=== PATIENT | female | born 1965 | race Caucasian/White ===

== ENCOUNTER 2021-01-14 10:52 | Outpatient (REF) | payer BC, SELFPAY ==
--- NOTE | ~2021-01-14 | MM_ITS ---
EXAMINATION: MM SCREENING DIGITAL BREAST TOMOSYNTHESIS, BILATERAL CLINICAL INFORMATION: Screening. Asymptomatic. Prior remote bilateral reduction mammoplasty, 1991. The lifetime risk of breast cancer based on the Tyrer-Cuzick Model is 10%. COMPARISON: Mammography: 01/21/2018, 07/26/2016 TECHNIQUE: Digital breast tomosynthesis is performed in both the craniocaudal and mediolateral oblique views along with computer-aided detection (CAD). Synthesized 2D images are generated from the tomosynthesis. FINDINGS: There are scattered areas of fibroglandular density (ACR BI-RADS breast composition Category b). There are no significant masses, abnormal calcifications, or other abnormalities. There is minor stable scarring and benign round and coarse calcifications consistent with the prior reduction mammoplasty. The axilla are unremarkable. No significant changes from prior studies. MM/MM tomosynthesis screening BI IMPRESSION: No mammographic evidence of malignancy. ASSESSMENT: BI-RADS 2: Benign RECOMMENDATION: Routine annual mammography screening. This patient's information was entered into a reminder system with a target due date for their next mammogram.
== END 2021-01-14 10:53 | disposition home or self-care (01) ==
LOC: HO.MAMMO 10:52
PROVIDERS: Visit Provider Nurse Practitioner Adult Health
DX: Z12.31 Encounter for screening mammogram for malignant neoplasm of breast (principal)
CPT/HCPCS: 77063; 77067

== ENCOUNTER → 2022-04-23 14:12 | Outpatient (REF) | payer BC, SELFPAY ==
--- NOTE | 2022-04-23 14:17 | CA_ITS ---
Transthoracic Echocardiogram Patient (Last, First, Middle): Alice Lockhart M Gender: Female Date of : 1965 Age: 57 Procedure Date: 04/23/2022 Procedure Type: Transthoracic Echocardiogram Location: OP Height: 160.02 cm Weight: 65.77 kg BSA: 1.69 m2 Heart Rate: bpm BP: 110 / 70 mmHg Insole Channeler: TO Referring MD: Tameka Jim MD Home Visits Nurse: Helio Villalobos MD Symptoms: R00.2 - Palpitations Study Quality: Good ECG Rhythm: Sinus bradycardia Conclusions: - Essentially normal study Findings Left Ventricle Normal left ventricular size, thickness, and systolic function. The visually estimated ejection fraction is between 65-70%. Spectral Doppler is indicative of a normal filling pattern. Right Ventricle Normal right ventricular cavity size and systolic function. Atria Both atria are normal in size. There is no evidence of interatrial shunt. Aortic Valve Normal aortic valve structure and function. There is no aortic valve stenosis. There is no aortic valve regurgitation. Mitral Valve Normal mitral valve structure and function. There is trace mitral valve regurgitation. There is no mitral valve stenosis. Pulmonic Valve The pulmonic valve is likely normal. There is trace pulmonic valve regurgitation. Tricuspid Valve Normal tricuspid valve structure. Tricuspid regurgitation envelope is inadequate for calculation of right ventricular systolic pressure. Normal right atrial pressure. Great Vessels All visible segments of the aorta are normal in size. The pulmonary artery was not well visualized. Venous The inferior vena cava is normal in size and collapses greater than 50% with inspiration. Pericardium/Pleural There is no evidence of pericardial effusion. Prior Study Comparison No prior study available for comparison. Measurements 2D Linear Measurements IVSd: 0.99 0.6-0.9/0.6-1.0 cm LVIDd: 4.57 3.9-5.3/4.2-5.9 cm LVIDd Index: 2.70 2.4-3.2/2.2-3.1 cm/m2 LVIDs: 3.03 2.0-3.6 cm LVPWd: 0.85 0.7-1.1 cm LA Diam: 3.30 2.7-3.8/3.0-4.0 cm LAIDs Index: 1.95 1.5-2.3 cm/m2 LV Mass: 173.88 67-162/88-224 g LV Mass Index: 102.89 43-95/49-115 g/m2 LVOT Diam: 2.00 3.0+(-)1.3 cm 2D Systolic Function EF 4C: 67.10 >55% EF 2C: 66.40 >55% EF BiP: 67.60 >55% Mitral Valve MV Pk E: 0.83 MV PK A: 0.52 MV Decel Time: 219.00 E/A: 1.60 E'Lateral: 13.40 E'Medial: 8.81 E/E' Med: 9.40 E/E' Lat: 6.20 PHT: 64.00 MVA PHT: 3.44 Decel Manatee: 3.78 Aortic Valve AoV Pk Juvencio: 1.41 AoV Mn Juvencio: 0.93 AoV VTI: 0.35 AoV Pk Grad: 8.00 Aov Mn Grad: 4.00 MYNOR Cont.VTI: 2.43 LVOT LVOT Pk Juvencio: 1.20 LVOT Mn Juvencio: 0.64 LVOT VTI: 0.27 LVOT Pk Grad: 6.00 LVOT Mn Grad: 2.00 LVOT Diam: 2.00 LVOT Area: 3.14 Diastolic Function MV Pk E: 0.83 MV Pk A: 0.52 E/A: 1.60 E'Medial: 8.81 E/E' Med: 9.40 E' Laterial: 13.40 E/E' Lat: 6.20 Right Ventricle TAPSE (mm): 28.90 TVS' Juvencio: 12.40 Tricuspid Valve RA Press: 3.00 Great Vessels Aorta Sinus of Valsalva: 3.05 2.0-3.5 cm Ao Asc: 3.60 2.1-3.4 cm Ao Arch: 2.50 Updated in Other Vendor System with Status of Final Helio Villalobos MD electronically signed on 04/24/2022 5:22:53 PM with status of Final
== END ==
LOC: HO.CARD 14:12
PROVIDERS: Visit Provider Internal Medicine
DX: R00.1 Bradycardia, unspecified (principal); R00.2 Palpitations; R94.31 Abnormal electrocardiogram [ECG] [EKG]; E78.9 Disorder of lipoprotein metabolism, unspecified; Z87.891 Personal history of nicotine dependence
CPT/HCPCS: 93306

== ENCOUNTER → 2022-04-25 10:57 | Outpatient (REF) | payer BC, SELFPAY ==
--- NOTE | 2022-04-25 11:09 | HM_ITS ---
Conclusion: 1. Patient was monitored for total period of 2 days 2. Baseline was normal sinus rhythm with average heart of 52 beats per minute. 3. Frequent sinus bradycardia with heart rate below 60 beats per minute 48% of total time with lower start of 33 beats per minute during sleep 4. No significant pauses noted 5. Four short episodes of supra tachycardia, longest lasting 7 beats 6. Total of 18 167 PVCs accounting for 1.23% of total beats account for frequent PVCs 7. No patient reported events MTDD
== END ==
LOC: HO.CARD 10:57
PROVIDERS: PCP Internal Medicine; Visit Provider Internal Medicine Cardiovascular Disease
DX: R00.1 Bradycardia, unspecified (principal); R00.2 Palpitations; R94.31 Abnormal electrocardiogram [ECG] [EKG]
CPT/HCPCS: 93242

== ENCOUNTER 2022-04-27 22:51 | Emergency (ER) | payer BC, SELFPAY ==
--- NOTE | 2022-04-27 22:54 | ECG_ITS ---
Test Reason : chest tightness/heart rate flux Blood Pressure : / mmHG Vent. Rate : 049 BPM Atrial Rate : 049 BPM P-R Int : 148 ms QRS Dur : 076 ms QT Int : 420 ms P-R-T Axes : 058 078 080 degrees QTc Int : 379 ms Sinus bradycardia Low voltage QRS Septal infarct , age undetermined Abnormal ECG No previous ECGs available Referred By: Generic ED Physician Electronically Signed By:DARREL WELCH MD
[2022-04-27 22:55] VITALS: BP 133/69; PULSE 52; RESP 18; TEMP 37; O2SAT 99; BMI 25.1
--- NOTE | 2022-04-27 23:25 | ED_ITS ---
HPI - Chest Pain General Chief Complaint: Chest Pain Stated Complaint: cardiac arrest? Time Seen by Provider: 04/27/22 23:11 Source: patient Mode of arrival: ambulatory Limitations: no limitations History of Present Illness HPI narrative: Patient comes emergency room complaining episodes of tachycardia, heart rate up to 120 according to her Apple watch. Patient states that she was shaving her legs at this time. The tachycardia self resolved. Patient states that sometimes she feels palpitations, patient has been on a Holter monitor, today she ended her Holter monitor times and had to return the Holter. Patient reports the sensation of having ?something in the neck?. Patient states that she feels very anxious because approximately 1 week ago, she had an EKG done at her primary care physicians and she was told that it is possible that at some point she had signed heart attack. At this time, patient had no chest pain, no shortness of breath, complaining of chronic fatigue. Patient had an echocardi ogram done 4 days ago, it was normal. Related Data Allergies Allergy/AdvReac Type Severity Reaction Status Date / Time No Known Allergies Allergy Unverified 04/19/22 08:24 [No Known Allergies*] hydrocodone AdvReac Unknown nausea and Uncoded 04/19/22 08:24 vomiting Review of Systems Review of Systems: Constitutional : No Weight loss, No Fever, No Chills, No Night Sweats, No Fatigue, No Malaise ENT/Mouth : No Hearing loss, No Ear Pain, No Nasal Congestion, No Sinus Pain, No Hoarseness, No sore throat, No Rhinorrhea, No Swallowing Difficulty Eyes: No Eye Pain, No Swelling, No Redness, No Foreign Body, No Discharge, No Vision Changes Cardiovascular : No Chest Pain, No SOB, No Dyspnea on Exertion, No Orthopnea, complaining of palpitations, bradycardia and tachycardia Respiratory : No Cough, No Sputum, No Wheezing, No Smoke Exposure, No Dyspnea Gastrointestinal : No Nausea, No Vomiting, No Diarrhea, No Constipation, No abdominal Pain, No Hematochezia, No Melena Genitourinary : no irregular bleeding, No Dysuria, No Urinary Frequency, No Hematuria, No Urinary Incontinence, No Urgency, No Flank Pain, No Urinary Flow Changes, No Hesitancy Musculoskeletal : No joint pain, No Myalgias, No Joint Swelling Skin : No Skin Lesions, No rash Neuro : No Weakness, No Numbness, No Paresthesias, No Loss of Consciousness, No Dizziness, No Headache Psych : Complaining of feeling anxious, No Depression, No SI/HI/AH/VH, No Social Issues, Heme/Lymph: No Bruising, No Bleeding,No Lymphadenopathy Endocrine : No Polyuria, No Polydipsia, No Temperature Intolerance [facility] Social History Social History Advance Directives: No Advance Directives Information Provided: Yes Physical Exam Vital Signs: Vital Signs: Last Vital Signs Temp 98.6 F 04/27/22 22:55 Pulse 52 04/27/22 22:55 Resp 18 04/27/22 22:55 BP 133/69 04/27/22 22:55 Pulse Ox 99 04/27/22 22:55 O2 Del Method 04/27/22 22:55 BMI result Body Mass Index 25.1 Const: Other: Appearance: Alert. Oriented X3. No acute distress. Eyes: Pupils equal, round and reactive to light. ENT: Pharynx normal. Neck: Normal inspection. Neck supple. No lymph nodes noted. No crepitus CVS: Normal heart rate and rhythm. Pulses normal. Normal S1 and S2 Respiratory: No respiratory distress. Breath sounds normal. No Wheezing. No rales Abdomen: Soft and nontender. No rigidity. No distention. Skin: Skin warm and dry. Normal skin color. Normal skin turgor. Extremities: No lower extremity edema. No Lacerations. No Rash Neuro: Oriented X 3. No motor deficit. No sensory deficit. Moving all extremities. No slurred speech. CN 2 through 12 grossly intact Psych: calm, cooperative, normal affect, slightly anxious Course Course Course Narrative: Patient's EKG shows bradycardia. Patient's blood pressure within normal limits. At this time, no episodes of tachycardia have been reported. All of patient's labs are pending. Patient's D-dimer, troponin negative. Vitals are stable, patient does have bradycardia but her blood pressure is stable in the 130s. TSH within normal limits. I discussed the echocardiogram done on 04/23/2022, conclusions: Essentially normal study At this time, we will not add/change any medication. Patient will follow-up with Dr. Wilfredo MCNALLY - Chest Pain Lab Data Result diagrams: 04/28/22 00:24 04/28/22 00:24 Labs: Lab Results 04/28/22 04/28/22 04/28/22 Range/Units 00:24 00:24 00:24 WBC 7.2 (4.8-10.8) X10*3/uL RBC 4.47 (4.20-5.50) X10*6/uL Hgb 13.6 (12.0-16.0) g/dl Hct 40.9 (37.0-47.0) % MCV 91.5 (80.0-98.0) fL MCH 30.4 (27.0-33.0) pg MCHC 33.3 (31.0-35.0) g/dl RDW 12.8 (11.0-16.0) % Plt Count 192 (160-400) X10*3/uL MPV 10.2 (9.4-12.3) fL Immature Gran % (Auto) 0.1 (0.0-0.4) % Neut % (Auto) 48.8 (45-73) % Lymph % (Auto) 39.6 (20-40) % Bent % (Auto) 7.9 (2-11) % Eos % (Auto) 2.9 (0-4) % Baso % (Auto) 0.7 (0-2) % Lymph # (Auto) 2.9 (1.2-4.9) X10*3/uL Bent # (Auto) 0.6 (0.1-1.2) X10*3/uL Eos # (Auto) 0.2 (0.0-0.4) X10*3/uL Baso # (Auto) 0.1 (0.0-0.2) X10*3/uL Abs Immat Gran (auto) 0.01 (0.00-0.03) X10*3/uL Absolute Neuts (auto) 3.5 (2.0-8.3) x10*3/uL Absolute Nucleated RBC 0.000 (0.0-0.012) X10*3/uL Nucleated RBC % (auto) 0.0 (0.0-0.2) /100WBC D-Dimer High Sensitivty NG/ML Sodium 136 (135-145) mmol/L Potassium 3.8 (3.3-5.1) mmol/L Chloride 101 (96-108) mmol/L Carbon Dioxide 27 (22-29) mmol/L Anion Gap 12 (12-20) BUN 15 (9-16) mg/dL Creatinine 0.81 (0.5-1.4) mg/dL Estim Creat Clear Calc 70.0 Estimated GFR > 60 Random Glucose 110 (60-115) mg/dL Calcium 9.1 (8.4-10.2) mg/dL Total Bilirubin 1.0 (0.0-1.0) mg/dL AST 18 (5-31) U/L ALT 15 (0-31) U/L Alkaline Phosphatase 71 (39-117) U/L Troponin I High Sens 4.2 (<3.5-17.0) ng/L B-Natriuretic Peptide < 10 (<100) pg/mL Total Protein 7.5 (6.5-8.0) g/dL Albumin 4.4 (3.5-5.0) g/dL TSH (0.32-4.0) uIU/mL COVID-19 ([facility]) (Negative) COVID-19 Clin Com 04/28/22 04/28/22 04/28/22 Range/Units 00:24 00:25 00:25 WBC (4.8-10.8) X10*3/uL RBC (4.20-5.50) X10*6/uL Hgb (12.0-16.0) g/dl Hct (37.0-47.0) % MCV (80.0-98.0) fL MCH (27.0-33.0) pg MCHC (31.0-35.0) g/dl RDW (11.0-16.0) % Plt Count (160-400) X10*3/uL MPV (9.4-12.3) fL Immature Gran % (Auto) (0.0-0.4) % Neut % (Auto) (45-73) % Lymph % (Auto) (20-40) % Bent % (Auto) (2-11) % Eos % (Auto) (0-4) % Baso % (Auto) (0-2) % Lymph # (Auto) (1.2-4.9) X10*3/uL Bent # (Auto) (0.1-1.2) X10*3/uL Eos # (Auto) (0.0-0.4) X10*3/uL Baso # (Auto) (0.0-0.2) X10*3/uL Abs Immat Gran (auto) (0.00-0.03) X10*3/uL Absolute Neuts (auto) (2.0-8.3) x10*3/uL Absolute Nucleated RBC (0.0-0.012) X10*3/uL Nucleated RBC % (auto) (0.0-0.2) /100WBC D-Dimer High Sensitivty < 150 NG/ML Sodium (135-145) mmol/L Potassium (3.3-5.1) mmol/L Chloride (96-108) mmol/L Carbon Dioxide (22-29) mmol/L Anion Gap (12-20) BUN (9-16) mg/dL Creatinine (0.5-1.4) mg/dL Estim Creat Clear Calc Estimated GFR Random Glucose (60-115) mg/dL Calcium (8.4-10.2) mg/dL Total Bilirubin (0.0-1.0) mg/dL AST (5-31) U/L ALT (0-31) U/L Alkaline Phosphatase (39-117) U/L Troponin I High Sens (<3.5-17.0) ng/L B-Natriuretic Peptide (<100) pg/mL Total Protein (6.5-8.0) g/dL Albumin (3.5-5.0) g/dL TSH 1.80 (0.32-4.0) uIU/mL COVID-19 ([facility]) Negative (Negative) COVID-19 Clin Com See Note Discharge Plan Discharge Clinical Impression: Palpitation Patient Disposition: Home, Self-Care Instructions: Heart Palpitations (ED) Additional Instructions: Please follow-up with your primary care physician tomorrow. If you have any worsening or new symptoms, please return to the emergency room or call 911 Referrals: Helio Villalobos MD [Physician] - 3 days
[2022-04-28 00:36] LABS: Basophils Absolute Auto 0.1 X10*3/uL (0.0-0.2); Basophils Percent Auto 0.7 % (0-2); Eosinophils Absolute Auto 0.2 X10*3/uL (0.0-0.4); Eosinophils Percent Auto 2.9 % (0-4); Hematocrit 40.9 % (37.0-47.0); Hemoglobin 13.6 g/dl (12.0-16.0); Imm Gran Abs Auto 0.01 X10*3/uL (0.00-0.03); Imm Gran Pct Auto 0.1 % (0.0-0.4); Lymphocytes Absolute Auto 2.9 X10*3/uL (1.2-4.9); Lymphocytes Percent Auto 39.6 % (20-40); MANUAL DIFF FLAG NO; Mean Corpuscular HGB Conc 33.3 g/dl (31.0-35.0); Mean Corpuscular Hemoglobin 30.4 pg (27.0-33.0); Mean Corpuscular Volume 91.5 fL (80.0-98.0); Mean Platelet Volume 10.2 fL (9.4-12.3); Monocytes Absolute Auto 0.6 X10*3/uL (0.1-1.2); Monocytes Percent Auto 7.9 % (2-11); Neutrophils Absolute Auto 3.5 x10*3/uL (2.0-8.3); Neutrophils Percent Auto 48.8 % (45-73); Platelet Count 192 X10*3/uL (160-400); Red Blood Count 4.47 X10*6/uL (4.20-5.50); Red Cell Distribution Width 12.8 % (11.0-16.0); White Blood Count 7.2 X10*3/uL (4.8-10.8)
[2022-04-28 00:55] LABS: Alanine Aminotransferase 15 U/L (0-31); Albumin Level 4.4 g/dL (3.5-5.0); Alkaline Phosphatase 71 U/L (39-117); Anion Gap 12 (12-20); Aspartate Amino Transferase 18 U/L (5-31); Blood Urea Nitrogen 15 mg/dL (9-16); Calcium 9.1 mg/dL (8.4-10.2); Carbon Dioxide 27 mmol/L (22-29); Chloride 101 mmol/L (96-108); Estimated Glomerular Filt Rate > 60; Glucose Random 110 mg/dL (60-115); Potassium 3.8 mmol/L (3.3-5.1); Sodium 136 mmol/L (135-145); Total Protein 7.5 g/dL (6.5-8.0)
[2022-04-28 00:56] LABS: D Dimer High Sensitivity < 150 NG/ML
[2022-04-28 00:58] LABS: COVID-19 Test Negative (Negative)
[2022-04-28 01:01] LABS: B Type Natriuretic Peptide < 10 pg/mL (<100); Troponin-I High Sensitivity 4.2 ng/L (<3.5-17.0)
== END 2022-04-28 01:49 | disposition home or self-care (01) ==
PROVIDERS: Emergency Provider Emergency Medicine
DX: R00.2 Palpitations (principal); R00.1 Bradycardia, unspecified; R53.83 Other fatigue; Z20.822 Contact with and (suspected) exposure to COVID-19; E78.9 Disorder of lipoprotein metabolism, unspecified; F41.9 Anxiety disorder, unspecified; Z87.891 Personal history of nicotine dependence
CPT/HCPCS: 36415; 80053; 83880; 84443; 84484; 85025; 85379; 87635; 93005; 99283; 99284

== ENCOUNTER → 2022-05-04 10:33 | Outpatient (REF) | payer BC, SELFPAY ==
--- NOTE | 2022-05-04 10:36 | CA_ITS ---
Acquisition Time: 2022-05-04 10:51:35 Total Exercise Time: 00:10:47 Test Indications: Abnormal ECG Medications: NONE Protocol: KELVIN Max HR: 151 BPM 92% of Pred: 164 BPM Max BP: 156/056 mmHG Max Work Load: 13.0 METS Exercise stress test with exercise 10 min 47 sec of Kelvin protocol, achieving 91% MPHR, without anginal symptoms, with isolated PVC, with normotensive and normal chronotropic response to exercise, without EKG changes meeting criteria for ischemia, with J point depression and upsloping ST segments. In recovery there is borderline ST depression with scooping ST segments inferiorly and V3-V6. At around 6 min recovery she reported a vague pressure to right of her sternum. She tells me she gets that feeling randomly at home. Her symptom resolved after a few minutes. Test reviewed with Dr Mckeon Will order a stress echocardiogram for further evaluation. Referred By: Helio Villalobos Overread By: JOE CARDOSO
--- NOTE | 2022-05-04 10:36 | HM_ITS ---
TEST PERFORMED: Cardiac event monitoring. REQUESTING PHYSICIAN: Dr. Villalobos. INDICATION: Palpitations. ENROLLMENT PERIOD: 05/04/2022 to 06/03/2022; 30 days. INDICATION: Palpitations. FINDINGS: In the above monitoring period, underlying rhythm is sinus. Rates ranged from 34 to 111 beats per minute. Isolated PVCs noted. Rare PACs noted. Several symptoms documented including chest pain, dizziness, shortness of breath, racing, fluttering at different times. A lot of these seem to correlate with sinus rhythm. On some occasions, also noted with PVCs and PACs, but the ectopy burden is very low. CONCLUSION: Study shows underlying sinus rhythm with sinus bradycardia, rare PACs/PVCs. The patient's symptoms generally correlate with sinus rhythm, on occasion with PACs/PVCs, but ectopy burden is minimal. MD JOSE Sigala/ANGELIKA / [id number] MTDNel
== END ==
LOC: HO.CARD 10:33
PROVIDERS: PCP Internal Medicine; Visit Provider Internal Medicine Cardiovascular Disease
DX: R00.2 Palpitations (principal); R00.1 Bradycardia, unspecified
CPT/HCPCS: 93017; 93270

== ENCOUNTER 2022-05-10 11:48 | Outpatient (REF) | payer BC, SELFPAY ==
[2022-05-10 12:49] LABS: Cholesterol 241 mg/dL; HDL Cholesterol 84 mg/dL; LDL Cholesterol Calculated 147 mg/dl; Triglycerides 52 mg/dL
[2022-05-12 14:27] LABS: CRP High Sensitivity <0.3 mg/L
== END 2022-05-10 11:49 | disposition home or self-care (01) ==
LOC: HO.LAB 11:48
PROVIDERS: Visit Provider Internal Medicine Cardiovascular Disease
DX: E78.5 Hyperlipidemia, unspecified (principal); E78.9 Disorder of lipoprotein metabolism, unspecified; I25.10 Atherosclerotic heart disease of native coronary artery without angina pectoris
CPT/HCPCS: 36415; 80061; 86141

== ENCOUNTER 2022-05-14 10:28 | Outpatient (REF) | payer BC, SELFPAY ==
--- NOTE | ~2022-05-14 | XR_ITS ---
EXAMINATION: XR CHEST CLINICAL INFORMATION: Previous artifacts, follow-up. COMPARISON: None TECHNIQUE: 2 views of the chest were obtained. FINDINGS: No significant abnormality is noted involving the heart, lungs, mediastinum, bony thorax or soft tissues. XR/XR chest 2V IMPRESSION: No acute cardiopulmonary process.
== END 2022-05-14 10:29 | disposition home or self-care (01) ==
LOC: HO.HMGCX 10:28
PROVIDERS: Visit Provider Internal Medicine
DX: R59.1 Generalized enlarged lymph nodes (principal)
CPT/HCPCS: 71046

== ENCOUNTER → 2022-05-22 11:06 | Outpatient (REF) | payer BC, SELFPAY ==
--- NOTE | 2022-05-22 11:10 | CA_ITS ---
Acquisition Time: 2022-05-22 11:26:34 Total Exercise Time: 00:10:43 Test Indications: CHEST PAIN Medications: SEE H Protocol: KELVIN Max HR: 137 BPM 83% of Pred: 164 BPM Max BP: 136/070 mmHG Max Work Load: 12.9 METS Exercise stress test with exercise 10 min 43 sec of Kelvin protocol, achieving 83% MPHR, with exercise to her max limit, with mild sob, no chest discomfort, with isolated PVCs noted in early recover, with normotensive and blunted heart rate response to exercise ( during recent ETT with same exercise HR reached 91% MPHR), with artifact in stage 4/ peak, with borderline ST depression inferiorly also with T wave abnormalities/ flattening to slight inversion present and similar to baseline. In recovery she reported a mild discomfort in her mid chest that lasted about 2 minutes. Her heart rate corrected quickly in recovery: 1 min post exercise HR 55% MPHR. Echo images obtained by tech at rest and immediately post peak exercise. Definity contrast used. Test reviewed with Dr Vilchis Referred By: Miranda Kumar Overread By: MIRANDA KUMAR
== END ==
LOC: HO.CARD 11:06
PROVIDERS: Visit Provider Nurse Practitioner Family
DX: R07.9 Chest pain, unspecified (principal); R00.2 Palpitations; R94.39 Abnormal result of other cardiovascular function study; R94.31 Abnormal electrocardiogram [ECG] [EKG]
CPT/HCPCS: 93350; Q9957

== ENCOUNTER → 2022-05-24 10:52 | Outpatient (REF) | payer BC, SELFPAY | LOC: HO.SL 10:52 | PROVIDERS: Visit Provider Internal Medicine Cardiovascular Disease | DX: R40.0 Somnolence (principal); R06.83 Snoring; R00.1 Bradycardia, unspecified | CPT/HCPCS: 95806 ==

== ENCOUNTER 2022-08-10 11:09 | Outpatient (REF) | payer BC, SELFPAY ==
--- NOTE | ~2022-08-10 | CT_ITS ---
EXAMINATION: CT head/brain wo IV con CLINICAL INFORMATION: Forgetfulness COMPARISON: CT head without contrast 07/23/2015 TECHNIQUE: Contiguous axial imaging was performed from the skull base to vertex without intravenous contrast. Sagittal and coronal reformatted images were obtained. This CT examination was performed using dose optimization techniques as appropriate, variously including the following: * Automated exposure control * Adjustment of mA and/or kV according to patient size (this includes techniques or standardized protocols for targeted exams where dose is matched to indication/reason for exam; i.e. extremities or head) Use of iterative reconstruction technique DLP: 602 mGy-cm FINDINGS: No acute osseous or soft tissue abnormality. The mastoid air cells and visualized portions of the paranasal sinuses are well aerated. There is no evidence of acute intracranial hemorrhage or territorial infarction. No abnormal mass effect or midline shift is seen. Brito to white matter differentiation is well preserved. No extra-axial fluid collections are identified. No hydrocephalus. No significant volume loss. There is no abnormal attenuation within the brain parenchyma. CT/CT head/brain wo IV con IMPRESSION: Normal examination
== END 2022-08-10 11:10 | disposition home or self-care (01) ==
LOC: HO.CT 11:09
PROVIDERS: Visit Provider Nurse Practitioner Family
DX: R68.89 Other general symptoms and signs (principal)
CPT/HCPCS: 70450

== ENCOUNTER 2022-09-10 08:30 | Outpatient (REF) | payer BC, SELFPAY ==
[2022-09-10 08:53] LABS: MANUAL DIFF FLAG NO
[2022-09-10 09:03] LABS: Basophils Percent Auto 0.8 % (0-2); Eosinophils Absolute Auto 0.2 X10*3/uL (0.0-0.4); Eosinophils Percent Auto 3.1 % (0-4); Hematocrit 42.2 % (37.0-47.0); Hemoglobin 13.9 g/dl (12.0-16.0); Imm Gran Abs Auto 0.01 X10*3/uL (0.00-0.03); Imm Gran Pct Auto 0.2 % (0.0-0.4); Lymphocytes Absolute Auto 1.9 X10*3/uL (1.2-4.9); Lymphocytes Percent Auto 38.1 % (20-40); Mean Corpuscular HGB Conc 32.9 g/dl (31.0-35.0); Mean Corpuscular Hemoglobin 30.9 pg (27.0-33.0); Mean Corpuscular Volume 93.8 fL (80.0-98.0); Mean Platelet Volume 10.2 fL (9.4-12.3); Monocytes Absolute Auto 0.3 X10*3/uL (0.1-1.2); Monocytes Percent Auto 6.6 % (2-11); Neutrophils Absolute Auto 2.5 x10*3/uL (2.0-8.3); Neutrophils Percent Auto 51.2 % (45-73); Platelet Count 190 X10*3/uL (160-400); Red Cell Distribution Width 12.7 % (11.0-16.0); White Blood Count 4.9 X10*3/uL (4.8-10.8)
[2022-09-10 10:08] LABS: Alanine Aminotransferase 13 U/L (0-31); Albumin Level 4.1 g/dL (3.5-5.0); Alkaline Phosphatase 61 U/L (39-117); Anion Gap 11 (12-20); Aspartate Amino Transferase 16 U/L (5-31); Bilirubin Total 1.5 mg/dL (0.0-1.0); Blood Urea Nitrogen 12 mg/dL (9-16); Calcium 9.2 mg/dL (8.4-10.2); Carbon Dioxide 28 mmol/L (22-29); Chloride 102 mmol/L (96-108); Cholesterol 214 mg/dL; Estimated Glomerular Filt Rate > 60; Glucose Fasting 127 mg/dL (60-99); HDL Cholesterol 83 mg/dL; LDL Cholesterol Calculated 117 mg/dl; Potassium 3.8 mmol/L (3.3-5.1); Sodium 137 mmol/L (135-145); TSH reflex Free T4 1.26 uIU/mL (0.32-4.0); Total Protein 6.9 g/dL (6.5-8.0); Triglycerides 71 mg/dL; Vitamin D 25-OH Total 17.8 ng/mL (>30)
[2022-09-10 10:16] LABS: Syphilis Screen Nonreactive (Nonreactive)
[2022-09-10 10:29] LABS: Folate 5.3 ng/mL (> or = 4.0); Vitamin B12 292 pg/mL (200-900)
[2022-09-12 03:31] LABS: Lyme Abs Screen <0.90 index
[2022-09-12 16:23] LABS: Ceruloplasmin 23 mg/dL (18-53)
[2022-09-13 15:38] LABS: Transglutaminase Ab IgG <1.0 U/mL; Transglutaminase IgA <1.0 U/mL
== END 2022-09-10 08:31 | disposition home or self-care (01) ==
LOC: HO.LAB 08:30
PROVIDERS: Psychiatry & Neurology Neurology; PCP Nurse Practitioner Family; Visit Provider Nurse Practitioner Family
DX: E78.9 Disorder of lipoprotein metabolism, unspecified (principal); T14.8XXA Other injury of unspecified body region, initial encounter; W57.XXXA Bitten or stung by nonvenomous insect and other nonvenomous arthropods, initial encounter; Z76.89 Persons encountering health services in other specified circumstances
CPT/HCPCS: 36415; 80053; 80061; 82306; 82390; 82607; 82746; 84443; 85025; 86364; 86617; 86618; 86780

== ENCOUNTER 2022-09-12 09:30 | Outpatient (REF) | payer BC, SELFPAY ==
--- NOTE | ~2022-09-12 | MR_ITS ---
EXAMINATION: MR BRAIN WITHOUT CONTRAST CLINICAL INFORMATION: Memory loss, numbness, vertigo, headache COMPARISON: CT head without contrast 08/10/2022 TECHNIQUE: Multiplanar multisequence MR imaging of the brain was obtained without intravenous contrast. FINDINGS: Right-sided dental hardware-related susceptibility artifact limits evaluation of the anterior intracranial contents on some sequences, particularly diffusion and susceptibility weighted imaging. There is no acute infarct on diffusion-weighted imaging. There is no intracranial hemorrhage on iron-sensitive imaging. No extra-axial collection or mass effect/herniation. Scattered periventricular and deep white matter T2 FLAIR hyperintensities consistent with mild underlying microangiopathy. No hydrocephalus. The ventricles are normal in morphology and size. The major flow voids at the skull base are preserved. The midline structures are normal. The cerebellar tonsils are normally positioned. The craniocervical junction is normal. Marrow signal is within normal limits. The visualized soft tissues are without significant abnormality. No signal abnormality within the paranasal sinuses or within the mastoid air cells. MR/MR head/brain wo con IMPRESSION: Mild chronic white matter microangiopathy. Otherwise unremarkable noncontrast MRI of the brain.
== END 2022-09-12 09:31 | disposition home or self-care (01) ==
LOC: HO.MRI 09:30
PROVIDERS: Visit Provider Internal Medicine
DX: R41.3 Other amnesia (principal); R20.0 Anesthesia of skin; R51.0 Headache with orthostatic component, not elsewhere classified; H81.4 Vertigo of central origin
CPT/HCPCS: 70551

== ENCOUNTER 2022-09-13 13:46 | Outpatient (REF) | payer BC, SELFPAY ==
[2022-09-13 15:26] LABS: Estimated Average Glucose 105 mg/dL; Hemoglobin A1c % 5.3 %
== END 2022-09-13 13:47 | disposition home or self-care (01) ==
LOC: HO.LAB 13:46
PROVIDERS: PCP Nurse Practitioner Family; Visit Provider Nurse Practitioner Family
DX: R73.01 Impaired fasting glucose (principal)
CPT/HCPCS: 36415; 83036

== ENCOUNTER 2022-09-21 13:43 | Outpatient (REF) | payer BC, SELFPAY ==
--- NOTE | ~2022-09-21 | CT_ITS ---
EXAMINATION: CT CHEST SCREENING CLINICAL INFORMATION: Partial history of nicotine dependence. 1 pack per day x 34 years. Quit 1 year ago. COMPARISON: None. TECHNIQUE: Multidetector volumetric CT imaging of the chest is performed without contrast using low dose technique. Additional 2D coronal and sagittal reformatted images and axial 3D maximum intensity projection (MIP) images are generated on the CT workstation. This CT examination was performed using dose optimization techniques as appropriate, variously including the following: *Automated exposure control *Adjustment of mA and/or kV according to patient size (this includes techniques or standardized protocols for targeted exams where dose is matched to indication/reason for exam; i.e. extremities or head) *Use of iterative reconstruction technique DLP: 41 mGy-cm FINDINGS: LUNGS: The lungs are well expanded and clear of acute pneumonic process. There are no pulmonary nodules, mass or consolidation. There are several calcified nodules measuring 4 mm in the right lower lobe axial image 31/4, 5 mm calcified nodule in the right middle lobe, axial image 35/4, 3 mm calcified nodule in the right lower lobe, axial image 38/4. There are additional smaller calcified nodules. There is a noncalcified 3 mm nodule in the right lower lobe, axial image 254/6. There is no consolidation, ground-glass density or mass is seen. MEDIASTINUM: The thyroid lobes are symmetric and normal. The central trachea and the bronchi are widely patent. The heart size and great vessels are normal caliber. There is trace coronary artery calcifications present. No pericardial effusion seen. CORONARY ARTERY CALCIFICATION: Trace coronary artery calcifications are noted. PLEURA: There is no pleural effusion. No pleural mass or thickening. AXILLA: There are vascular calcifications in the left axilla. UPPER ABDOMEN: Visualized liver, spleen, pancreas and bilateral adrenal glands are unremarkable. OSSEOUS STRUCTURES: No aggressive lytic or sclerotic process seen. There is mild ventral spondylosis in the mid and lower dorsal spine. CT/CT lung screening IMPRESSION: Multiple calcified pulmonary nodules. There is 3 mm noncalcified nodule right lower lobe. Low-dose annual CT chest. ASSESSMENT: Lung-RADS category 2: Benign. RECOMMENDATION: Low-dose annual CT of the chest.
== END 2022-09-21 13:44 | disposition home or self-care (01) ==
LOC: HO.CT 13:43
PROVIDERS: Visit Provider Physician Assistant Medical
DX: Z12.2 Encounter for screening for malignant neoplasm of respiratory organs (principal); Z87.891 Personal history of nicotine dependence
CPT/HCPCS: 71271; G0296

== ENCOUNTER 2023-01-14 10:59 | Outpatient (REF) | payer BC, SELFPAY ==
--- NOTE | ~2023-01-14 | MM_ITS ---
EXAMINATION: MM SCREENING DIGITAL BREAST TOMOSYNTHESIS, BILATERAL CLINICAL INFORMATION: Screening. Asymptomatic. Remote prior reduction mammoplasty, 1991. The lifetime risk of breast cancer based on the Tyrer-Cuzick Model is 12%. COMPARISON: Mammography: 01/14/2021, 01/21/2018, 07/26/2016 TECHNIQUE: Digital breast tomosynthesis is performed in both the craniocaudal and mediolateral oblique views along with computer-aided detection (CAD). Synthesized 2D images are generated from the tomosynthesis. FINDINGS: There are scattered areas of fibroglandular density (ACR BI-RADS breast composition Category b). There is minor scarring and scattered bilateral round and rim and dermal calcifications consistent with the prior remote reduction mammoplasty. There are no significant masses, abnormal calcifications, or other abnormalities. No interval architectural abnormality. No significant changes. MM/MM tomosynthesis screening BI IMPRESSION: No mammographic evidence of malignancy. ASSESSMENT: BI-RADS 2: Benign RECOMMENDATION: Routine annual mammography screening. This patient's information was entered into a reminder system with a target due date for their next mammogram.
== END 2023-01-14 11:00 | disposition home or self-care (01) ==
LOC: HO.MAMMO 10:59
PROVIDERS: PCP Nurse Practitioner Family; Visit Provider Nurse Practitioner Family
DX: Z12.31 Encounter for screening mammogram for malignant neoplasm of breast (principal)
CPT/HCPCS: 77063; 77067

== ENCOUNTER 2023-04-04 10:29 | Outpatient (REF) | payer BC, SELFPAY ==
[2023-04-04 13:05] LABS: Alanine Aminotransferase 17 U/L (0-31); Albumin Level 4.4 g/dL (3.5-5.0); Alkaline Phosphatase 66 U/L (39-117); Anion Gap 11 (12-20); Aspartate Amino Transferase 19 U/L (5-31); Bilirubin Total 1.8 mg/dL (0.0-1.0); Blood Urea Nitrogen 15 mg/dL (9-16); Calcium 9.1 mg/dL (8.4-10.2); Carbon Dioxide 28 mmol/L (22-29); Chloride 106 mmol/L (96-108); Estimated Glomerular Filt Rate > 60; Glucose Random 106 mg/dL (60-115); Potassium 4.2 mmol/L (3.3-5.1); Sodium 141 mmol/L (135-145); Total Protein 7.6 g/dL (6.5-8.0)
[2023-04-06 06:50] LABS: Lyme Abs Screen <0.90 index
[2023-04-06 15:04] LABS: A. Phagocytphilium DNA,RT-PCR NOT DETECTED (NOT DETECTED); Babesia Microti DNA, RT-PCR NOT DETECTED (NOT DETECTED); Borrelia Miyamotoi,DNA RT-PCR NOT DETECTED (NOT DETECTED); E.Chaffeensis DNA RT-PCR NOT DETECTED (NOT DETECTED); Lyme(Borrelia ssp)DNA RT-PCR NOT DETECTED (NOT DETECTED)
== END 2023-04-04 10:30 | disposition home or self-care (01) ==
LOC: HO.HMGCLDS 10:29
PROVIDERS: Physician Assistant; PCP Nurse Practitioner Family; Visit Provider Nurse Practitioner Family
DX: T14.8XXA Other injury of unspecified body region, initial encounter (principal); R17 Unspecified jaundice; W57.XXXA Bitten or stung by nonvenomous insect and other nonvenomous arthropods, initial encounter; Y93.9 Activity, unspecified; Y92.9 Unspecified place or not applicable; Y99.9 Unspecified external cause status; Z20.2 Contact with and (suspected) exposure to infections with a predominantly sexual mode of transmission
CPT/HCPCS: 36415; 80053; 86617; 86618; 87798; 87801

== ENCOUNTER 2024-01-20 10:26 | Outpatient (REF) | payer BC, SELFPAY ==
--- NOTE | ~2024-01-20 | MM_ITS ---
EXAMINATION: MM SCREENING DIGITAL BREAST TOMOSYNTHESIS, BILATERAL CLINICAL INFORMATION: Screening. Asymptomatic. The patient is status post bilateral breast reduction. COMPARISON: Mammography: This study is compared with prior exams dating back to TECHNIQUE: Digital breast tomosynthesis is performed in both the craniocaudal and mediolateral oblique views along with computer-aided detection (CAD). Synthesized 2D images are generated from the tomosynthesis. FINDINGS: There are scattered areas of fibroglandular density (ACR BI-RADS breast composition Category b). There are no significant masses, abnormal calcifications, or other abnormalities. Post reduction changes are present in each breast. MM/MM tomosynthesis screening BI IMPRESSION: No mammographic evidence of malignancy. ASSESSMENT: BI-RADS BI-RADS 2 - Benign Findings RECOMMENDATION: Routine annual mammography screening. 1 year F/U This examination should not preclude the clinical evaluation of a suspicious palpable abnormality. This patient's information was entered into a reminder system with a target due date for their next mammogram.
== END 2024-01-20 10:27 | disposition home or self-care (01) ==
LOC: HO.MAMMO 10:26
PROVIDERS: Visit Provider Nurse Practitioner Adult Health
DX: Z12.31 Encounter for screening mammogram for malignant neoplasm of breast (principal)
CPT/HCPCS: 77063; 77067

== ENCOUNTER → 2024-01-20 10:30 | Outpatient (BNV) | payer BC, SELFPAY | PROVIDERS: Visit Provider Radiology Diagnostic Radiology | DX: Z12.31 Encounter for screening mammogram for malignant neoplasm of breast (principal) | CPT/HCPCS: 77063; 77067 ==